=== PATIENT | female | born 1955 | race Caucasian/White ===

== ENCOUNTER 2020-09-13 04:37 | Day surgery (SDC) | payer OTHER, MEDICARE ==
[2020-09-12 16:02] VITALS: BMI 24.7
[2020-09-13] MEDS ORDERED: ROPIVACAINE HCL 0.5% 30ML VIAL ONE (07:20)
[2020-09-13] MEDS ORDERED: MIDAZOLAM HCL 2 MG/2 ML SINGLE DOSE VIAL ONE ×3 (07:22→07:30)
[2020-09-13] MEDS ORDERED: DEXAMETHASONE SOD PHOSPHATE 4 MG/1 ML VIAL ONE (07:23)
[2020-09-13] MEDS ORDERED: LIDOCAINE HCL/PF 2% SDV 5ML VIAL ONE (07:23)
[2020-09-13] MEDS ORDERED: PROPOFOL 20 ML ONE ×2 (07:26)
[2020-09-13] MEDS ORDERED: ceFAZolin SODIUM 1 GM VIAL IVPB ONE (08:35)
[2020-09-13] MEDS ORDERED: ceFAZolin SODIUM 1 GM VIAL ONE (08:46)
[2020-09-13] MEDS ORDERED: ONDANSETRON 4 MG/2 ML VIAL IVPUSH PRN (09:00)
[2020-09-13] MEDS ORDERED: oxyCODONE HCL 5 MG TABLET PO PRN ×2 (09:00)
[2020-09-13] MEDS ORDERED: LACTATED RINGERS SOLUTION 1,000 ML IV SCH (09:00)
[2020-09-13 18:05] VITALS: BP 124/73; PULSE 96; TEMP 98.2
== END 2020-09-13 13:50 | disposition home or self-care (01) ==
LOC: JASU-SURG 04:37
PROVIDERS: ATTEND Orthopaedic Surgery
PROC: 0RNK4ZZ Release Left Shoulder Joint, Percutaneous Endoscopic Approach (ICD-10-PCS; principal; 2020-09-13 08:00)
DX: M75.42 Impingement syndrome of left shoulder (principal)
CPT/HCPCS: 94760